=== PATIENT | male | born 1955 | race Caucasian/White ===

== ENCOUNTER 2023-11-13 10:15 | Observation (INO) ==
--- NOTE | 2023-10-29 15:45 | Anesthesiology Consultation ---
Date of Service October 29, 2023 Assessment & Plan (1) Encounter for pre-operative examination: - Per field care manager on 10/29/23: No known infectious disease contacts, current infectious disease symptoms in past 10 days or COVID positive test result in the past 30 days. Chart Review Chart Review: Acceptable Risk for Surgery and Patient NOT seen in Pre Admission Testing History Surgery Operation Date: 11/13/23 07:30 Proposed Procedures p Robotic Assisted Laparoscopic Radical Retropubic Prostatectomy, Possible Open, Possible Pelvic Lymph Node Dissection - Tyler Way MD Height/Weight Height: 5 ft 4 in Weight: 79.832 kg Allergies Allergy/AdvReac Type Severity Reaction Status Date / Time cat dander Allergy Intermediate Itchy Verified 10/29/23 13:57 Eyes/Nasal Congestion pollen extracts Allergy Intermediate Itchy Verified 10/29/23 13:57 Eyes/Nasal Congestion Medications Home Medications Medication Instructions Recorded Confirmed Last Taken cetirizine 10 mg tablet 10 mg PO HS 06/30/20 10/29/23 08/15/20 methocarbamol 750 mg tablet 750 mg PO Q6H PRN Muscle Spasm 06/30/20 10/29/23 08/16/20 07:00 celecoxib 200 mg capsule (Celebrex) 200 mg PO QAM 05/07/23 10/29/23 Unknown triamcinolone acetonide 55 mcg 1 spray intranasal BID 06/16/23 10/29/23 Unknown nasal spray aerosol pregabalin 100 mg capsule 100 mg PO HS 09/09/23 10/29/23 Unknown pregabalin 25 mg capsule 25 mg PO QAM 09/09/23 10/29/23 Unknown azelastine 137 mcg-fluticasone 50 1 spray intranasal BID 10/29/23 10/29/23 Unkno wn mcg/spray nasal spray Past Medical History Medical History Chronic diarrhea "I have a loose gut not chronic diarrhea - depends on what I eat" Diverticular disease "Nothing found on my colonoscopy" Hx of Lyme disease completed antibiotic tx PONV (postoperative nausea and vomiting) "When they used ether" Prostate cancer No chemo/Radiation - will just be surgery Radiculopathy Stomach ulcer hx of Tremor [facility] - r/o Parkinson - "I don't have Parkinsons" Past Family History Family History Father Heart disease Grandfather Diabetes Mother Heart disease Brother No problems noted. Brother No problems noted. Daughter No problems noted. Son No problems noted. Other No family history of adverse response to anesthesia Past Surgical History Surgical History H/O vasectomy History of colonoscopy History of esophagogastroduodenoscopy (EGD) History of lumbar laminectomy History of prostate biopsy (07/18/23) History of removal of cyst off shoulder History of tonsillectomy History of tooth extraction History of wisdom tooth extraction Hx of excision of lamina of cervical vertebra for decompression of spinal cord x2--normal ROM Status post trigger finger release Social History Smoking Status: Never smoker Do You Dip or Chew Tobacco: No Hx Alcohol Use: Yes Alcohol type: beer, wine and hard liquor alcohol intake frequency: a few times a month Hx Substance Use: No substance use type: does not use Lab Results Anesthesia Preop Results Results Anesthesia Widget: WBC 6.07 K/ul (4.8-10.8) 10/01/23 Hgb 15.3 g/dl (14.0-18.0) 10/01/23 Hct 45.3 % (42.0-52.0) 10/01/23 Plt 131 K/uL (130-400) 10/01/23 Na 141 mmol/L (136-145) 10/01/23 K 4.0 mmol/L (3.5-5.1) 10/01/23 Cl 109 mmol/L (98-107) H 10/01/23 CO2 26 mmol/L (21-32) 10/01/23 BUN 16 mg/dl (6-23) 10/01/23 Creat 0.78 mg/dl (0.6-1.4) 10/01/23 Glucose Level 94 mg/dl (70-99(Fasting)) 10/01/23 Testing Electrocardiogram Date: 10/01/23 NSR, rate 73 bpm Chest X-Ray Date: 10/01/23 No acute process. Other Testing PET scan 09/04/23 Primary prostate lesion uptake without definite metastatic disease.
[2023-11-13] MEDS ORDERED: fentaNYL citrate PF 100 MCG/2 ML VIAL ONE ×4 (10:47→16:08)
[2023-11-13] MEDS ORDERED: MIDAZOLAM HCL 1 MG/ML 2ML VIAL ONE (10:47)
[2023-11-13] MEDS: LACTATED RINGER'S 1,000 ML IV SCH (11:12)
[2023-11-13] MEDS: LR 15ML/HR IV SCH (11:12)
[2023-11-13] MEDS: HEPARIN SOD 5,000 UNIT/0.5 ML VIAL SQ SCH ×2 (11:19→21:49)
--- NOTE | 2023-11-13 11:26 | History & Physical Report ---
Date of Service November 13, 2023 Assessment & Plan (1) Prostate cancer: Plan: We reviewed the plan for robot-assisted radical prostatectomy and pelvic lymph node dissection. We discussed risks and benefits of surgery. He expressed understanding and would like to proceed. History of Present Illness Primary Care Provider: Hitesh Toscano MD This is a 68-year-old male followed by urology for prostate cancer. He presents to the OR today for robot-assisted radical prostatectomy and bilateral pelvic lymph node dissection. He denies any changes in his health. Allergies Allergy/AdvReac Type Severity Reaction Status Date / Time cat dander Allergy Intermediate Itchy Verified 11/13/23 10:50 Eyes/Nasal Congestion pollen extracts Allergy Intermediate Itchy Verified 11/13/23 10:50 Eyes/Nasal Congestion Home Medications Medication Instructions Recorded Confirmed Type cetirizine 10 mg tablet 10 mg PO HS 06/30/20 11/13/23 History methocarbamol 750 mg tablet 750 mg PO Q6H PRN Muscle Spasm 06/30/20 11/13/23 History celecoxib 200 mg capsule (Celebrex) 200 mg PO QAM 05/07/23 11/13/23 History triamcinolone acetonide 55 mcg 1 spray intranasal BID 06/16/23 11/13/23 History nasal spray aerosol pregabalin 100 mg capsule 100 mg PO HS 09/09/23 11/13/23 History pregabalin 25 mg capsule 25 mg PO QAM 09/09/23 11/13/23 History azelastine 137 mcg-fluticasone 50 1 spray intranasal BID 10/29/23 11/13/23 History mcg/spray nasal spray oxybutynin chloride 5 mg 5 mg PO DAILY #30 tabs 10/30/23 11/13/23 Rx tablet,extended release 24 hr Past Med/Surg History Problem List Prostate cancer (Chronic 07/18/23) Elevated PSA Tremor Rectal bleeding Encounter for pre-operative examination Bladder spasm Medical History Chronic diarrhea "I have a loose gut not chronic diarrhea - depends on what I eat" Diverticular disease "Nothing found on my colonoscopy" Hx of Lyme disease completed antibiotic tx PONV (postoperative nausea and vomiting) "When they used ether" Prostate cancer No chemo/Radiation - will just be surgery Radiculopathy Stomach ulcer hx of Tremor [facility] - r/o Parkinson - "I don't have Parkinsons" Surgical History H/O vasectomy History of colonoscopy History of esophagogastroduodenoscopy (EGD) History of lumbar laminectomy History of prostate biopsy (07/18/23) History of removal of cyst off shoulder History of tonsillectomy History of tooth extraction History of wisdom tooth extraction Hx of excision of lamina of cervical vertebra for decompression of spinal cord x2--normal ROM Status post trigger finger release Family History Father Heart disease Grandfather Diabetes Mother Heart disease Brother No problems noted. Brother No problems noted. Daughter No problems noted. Son No problems noted. Other No family history of adverse response to anesthesia Social History Smoking Status: Never smoker Tobacco Type: Cigarettes Age Started Using Tobacco: 14; Age Quit Using Tobacco: 40; Second Hand Exposure: No; Do You Dip or Chew Tobacco: No; Tobacco Cessation Education Requested by Patient: No Hx Alcohol Use: Yes Alcohol type: beer, wine and hard liquor Alcohol Intake Frequency: Monthly or Less Hx Substance Use: No Preferred Language: Tamazight Communication Ability: Effective Visual Impairment: Limited Hearing Ability: Normal Soils Engineer Required: No Beliefs That Will Affect Care: None marital status: Current Living Situation: Spouse current occupational status: employed current occupation: meat department manager How many Children do You have: 1 Other Information That Helps Us Care for You: No Feels Safe at Home: Yes Safety Concerns: Feels Safe At This Time Childhood Exposure to Second-Hand Smoke: Yes Diet: regular caffeine: Yes during the past year weight has: remained stable Dental Care, Regularly: Yes Assistive Devices: Glasses Review of Systems 12 point review of systems negative except for otherwise indicated. Physical Exam Constitutional: well developed and well nourished; no acute distress Eyes: + anicteric sclerae; pupils not irregula r Respiratory: normal respiratory effort; no respiratory distress, does not use accessory muscles and no cough Cardiovascular: well perfused Gastrointestinal (Abdomen): Inspection/Auscultation: abdomen normal to inspection; abdomen not distended Musculoskeletal: Extremities: extremities normal to inspection Skin: normal turgor; no rashes and no lesions Neurologic: moves all extremities and awake Psychiatric: Orientation: alert and oriented x 3 Results & Data Vital Signs (Past 12 Hours) Vital Signs Temp Pulse Resp BP Pulse Ox O2 Del Method 11/13/23 10:50 36.6 C 66 18 148/97 H 97 Room Air
[2023-11-13] MEDS ORDERED: ACETAMINOPHEN 1000 MG/100 ML IV IV ONE (11:29)
[2023-11-13] MEDS ORDERED: LIDOCAINE 2% 2 ML VIAL/AMP(20MG/ML) INFIL ONE (11:32)
[2023-11-13] MEDS ORDERED: ROCURONIUM BROMIDE 10 MG/ML 5 ML VIAL IV ONE ×2 (11:32→13:21)
[2023-11-13] MEDS ORDERED: ONDANSETRON INJ 2 MG/ML 2 ML VIAL ONE (11:32)
[2023-11-13] MEDS ORDERED: DEXAMETHASONE SOD INJ 4 MG/ML VIAL ONE (11:32)
[2023-11-13] MEDS ORDERED: PROPOFOL IV EMULSION 10 MG/ML 20 ML VIAL IV ONE (11:32)
[2023-11-13] MEDS ORDERED: ATROPINE SULFATE 0.1 MG/ML 10ML SYR IV PRN (11:33)
[2023-11-13] MEDS ORDERED: ePHEDrine sulfate 50 MG/ML AMP IV PRN (11:33)
[2023-11-13] MEDS ORDERED: fentaNYL citrate PF 100 MCG/2 ML VIAL IV PRN (11:33)
[2023-11-13] MEDS ORDERED: ONDANSETRON INJ 2 MG/ML 2 ML VIAL IV PRN ×2 (11:33→17:45)
[2023-11-13] MEDS: ceFAZolin 2000MG 2,000 MG/15 ML SYR IV SCH ×2 (11:55→20:44)
[2023-11-13] MEDS ORDERED: PHENYLEPHRINE 100MCG/ML 10ML SYR IV ONE (12:23)
[2023-11-13] MEDS ORDERED: ePHEDrine sulfate 50 MG/5 ML SYR ONE (12:23)
[2023-11-13] MEDS: SURGICEL ABSORB HEMOSTAT 2IN X 14IN TOP ONE (15:21)
[2023-11-13] MEDS ORDERED: SUGAMMADEX SODIUM 200 MG/2 ML VIAL IV ONE (15:26)
[2023-11-13] MEDS: BUPIVACAINE 0.5 % 5 MG/1 ML MPF 30ML VIAL ONE (15:58)
--- NOTE | 2023-11-13 16:32 | Operative Report ---
PG Post Operative Report Pre & Post Diagnosis Operation Date: 11/13/23 12:10 Pre-Op Diagnosis: Prostate Cancer Post-Op Diagnosis: Prostate Cancer I identified the patient and participated in the time-out.: Yes Procedure Operation Date: 11/13/23 12:10 Actual Procedures p Robotic Assisted Laparoscopic Radical Retropubic Prostatectomy, Pelvic Lymph Node Dissection(Not Applicable) - Tyler Way MD Surgeon Tyler Way MD Online Tutor STEPHEN Goldsmith Estimated Blood Loss 150 Findings Consistent with Post-Op Diagnosis Specimens 1) periprostatic fat 2) right pelvic lymph nodes 3) left pelvic lymph nodes 4) prostate, vas deferens, seminal vesicles Drains Winston catheter per urethra Anesthesia Type General Complications none Disposition Accompanied Patient To Recovery: Yes Disposition: Recovery Room Indications This is a 68-year-old male followed by urology for prostate cancer. He presents to the OR today for robot-assisted radical prostatectomy Description of Procedure The patient was identified in the preoperative holding area and informed consent was confirmed. He was then brought to the operating room where general anesthesia was initiated. He was placed supine on the operating room table with all pressure points appropriately padded. His abdomen and genitalia were prepped and draped in the usual sterile fashion and a timeout was performed. A 2 cm incision was made above the umbilicus and then a Veress needle was used to obtain access to the abdomen. Proper position was confirmed with the drop test and low initial insufflation pressure. The abdomen was insufflated with CO2 to a pressure of 15 mmHg. An 8 mm robotic port was placed in the incision and the robotic camera was inserted. The abdominal cavity was surveyed, demonstrating no injury to intra-abdominal contents. He had some adhesions of the sigmoid and descending colon. The remaining robotic ports were placed under direct visualization, with 2 robotic ports on the left side and 1 robotic port on the right. A 12 mm assistant superintendent port was placed on the right side as well, and a 5 mm assistant superintendent port was placed in the right upper quadrant. The robot was then docked. I sharply divided the adhesions so that the rectum could be reflected out of the pelvic vault. Using electrocautery, the bladder was then dropped from the anterior wall of the abdomen, exposing the space of Retzius. This dissection was carried down to expose the pelvic brim and subsequently the anterior surface of the prostate and the endopelvic fascia. The fat overlying the anterior of the prostate was removed and sent for pathologic analysis, labeled as 'periprostatic fat'. The endopelvic fascia was then divided on each side to expose the lateral aspects of the prostate and the lateral aspects of the pedicles. A single 3-0 V-Loc suture was used to ligate the dorsal venous complex to prevent backbleeding in subsequent steps. The fourth arm of the robot was then used to put some gentle traction on the bladder, and the bladder neck was identified. Using electrocautery, the anterior bladder neck was dissected to expose the Winston catheter, whose tip was removed from the bladder and held anteriorly. The posterior bladder neck dissection was then completed. At this point bilateral vas deferens were exposed and isolated. The vas deferens were cauterized and then divided. Bilateral seminal vesicles were dissected out as well. The left seminal vesicle was somewhat fused posteriorly. Denonvilliers fascia was then divided and the posterior prostate dissection was carried up as far as possible toward the urethra. Overall, the posterior plane of the prostate was somewhat "sticky". The pedicles were then divided using combination of clips and sharp dissection, trying to use minimal electrocautery. On the right side, a partial nerve sparing approach was used. On the left side, a non-nerve sparing approach was used. Attention was turned anteriorly and the dorsal venous complex was divided using sharp dissection and electrocautery. The urethra was isolated and then divided sharply. At this point, the prostate was free and was placed in a specimen bag. Bilateral pelvic lymph node dissection was then performed, and the meredith tissue was sent for pathologic analysis. The pelvis was inspected and meticulous hemostasis was ensured. A single piece of Surgicel was placed on the pelvic floor. Double-armed V-Loc suture was then used to re-anastomose the bladder neck with the urethra. Once this was com plete, the anastomosis was tested by instilling 120 mL of normal saline into the bladder. Satisfied that the anastomosis was watertight, the catheter balloon was inflated with 10 mL of normal saline. Surgicel was then applied to the lateral aspects of the pelvis for hemostasis. The robot was then undocked. The supraumbilical incision was extended and the prostate was extracted. 0 Vicryl suture was then used to close the fascia at this incision. All skin incisions were closed with 4-0 Monocryl suture and then a layer of Dermabond was applied. The patient was then awakened from anesthesia and was brought to the PACU in stable condition. STEPHEN Goldsmith acted as the bedside assistant superintendent for the duration of the case. She assisted with gaining access, providing retraction and suction. Passing in sutures and applying clips as needed. She also helped with specimen extraction and closing. I attest to the content of the Intraoperative Record and any orders documented therein. Any exceptions are noted below.
--- NOTE | 2023-11-13 16:45 | Anesthesiology Progress Note ---
Date of Service November 13, 2023 Anesthesia Post Procedure Vital Signs Vital Signs: Temp Pulse Pulse Resp BP Pulse Ox O2 Del Method 11/13/23 16:30 78 22 145/91 H 100 Oxymask 11/13/23 16:20 36.2 C L 79 10 L 135/81 93 Oxymask 11/13/23 10:50 36.6 C 66 18 148/97 H 97 Room Air O2 Flow Rate 11/13/23 16:30 10 11/13/23 16:20 10 11/13/23 10:50 Transfer of Care Handoff Completed per policy Notes Mental Status: alert / awake / arousable Patient Amnestic to Procedure: Yes Nausea / Vomiting: adequately controlled Pain: adequately controlled Airway Patency, RR, SpO2: stable & adequate BP & HR: stable & adequate Hydration State: stable & adequate Anesthetic Complications: no major complications apparent
[2023-11-13] MEDS ORDERED: oxyCODONE HCL IR 5 MG TAB (IMMEDIATE RELEASE) PO PRN ×2 (17:45)
[2023-11-13] MEDS ORDERED: HYDROmorphone INJ 0.5 MG/0.5 ML SYR IV PRN ×2 (17:45)
[2023-11-13] MEDS: SODIUM CHLORIDE 0.9% 1,000 ML IV SCH (17:58)
[2023-11-13] MEDS: ACETAMINOPHEN 325 MG TAB PO SCH (18:08)
[2023-11-13] MEDS: CETIRIZINE HCL 10 MG TABLET PO SCH (21:48)
[2023-11-13] MEDS: METHOCARBAMOL 750 MG TABLET PO PRN (21:49)
[2023-11-13] MEDS: DOCUSATE SODIUM 100 MG CAP PO SCH (21:49)
[2023-11-13] MEDS: PREGABALIN 100 MG CAP PO SCH (21:49)
[2023-11-13] MEDS: AZELASTINE HCL 0.1% NASAL 200 SPRAYS/27,400 MCG BTL SCH (21:49)
[2023-11-14 06:27] LABS: Basophils # (auto) 0.02 K/uL (0.00-0.20); Basophils % (auto) 0.2 %; Eosinophils # (auto) 0.01 K/uL (0.00-0.50); Eosinophils % (auto) 0.1 %; Hematocrit (blood only) 40.8 % (42.0-52.0); Immature Granulocytes # (auto) 0.03 K/uL (0.01-0.20); Immature Granulocytes % (auto) 0.3 %; Lymphocytes # (auto) 2.49 K/uL (1.20-3.40); Lymphocytes % (auto) 22.6 %; Mean Corpuscular Hemoglobin 29.5 pg (25.0-34.0); Mean Corpuscular Hgb Conc 34.3 g/dL (32.0-36.0); Mean Corpuscular Volume 86.1 fL (80.0-100.0); Mean Platelet Volume 11.4 fL (9.4-12.4); Monocytes # (auto) 1.26 K/uL (0.11-0.59); Monocytes % (auto) 11.5 %; Neutrophils # (auto) 7.19 K/uL (1.40-6.50); Neutrophils % (auto) 65.3 %; Platelet Count 181 K/uL (130-400); RDW Coefficient of Variation 11.8 % (11.5-14.5); RDW Standard Deviation 36.9 fL (36.4-46.3); Red Blood Count 4.74 M/uL (4.70-6.10)
[2023-11-14 06:51] LABS: BUN Creatinine Ratio 14.7 (10-20); Calcium 8.6 mg/dl (8.6-10.3); Creatinine Clr Calc Pharmacy 88.8 ml/min; Est GFR (African American) 109.2 ml/min; Est GFR (Non-African American) 94.3 ml/min; Potassium 4.1 mmol/L (3.5-5.1)
[2023-11-14 07:25] VITALS: BP 142/97; PULSE 89; RESP 16; TEMP 97.9; O2SAT 96
--- NOTE | 2023-11-14 07:25 | Urology Progress Note ---
Date of Service November 14, 2023 Assessment & Plan (1) Prostate cancer: Plan: Overall he is recovering appropriately s/p radical prostatectomy on 11/13/2023. He is tolerating a diet, ambulating and pain is well-controlled. He is appropriate for discharge today. Admission and Anticipated Discharge Date Admission Date: November 13, 2023 Subjective Feeling well, slightly distended with minimal incisional tenderness Tolerating a diet with no nausea or vomiting Has been ambulating in the hallways Has had some bleeding around the catheter, especially with Valsalva. Physical Exam Physical Exam: Well-appearing, NAD Winston catheter in place draining clear red urine, Abdomen soft, appropriately tender to palpation, incisions well reapproximated with Dermabond. Results & Data Vital Signs (Past 12 Hours) Vital Signs Temp Pulse Resp BP Pulse Ox O2 Del Method 11/14/23 03:01 37.1 C 83 18 132/79 94 Room Air 11/13/23 22:48 36.9 C 93 H 16 147/91 H 96 Room Air 11/13/23 20:50 36.5 C 89 18 158/95 H 98 Room Air 11/13/23 19:48 36.6 C 89 16 158/91 H 98 Room Air PG Care Time/CCT Total # of Minutes Spent Total Time Spent with Patient: Total time spent is greater than 50% in coordination of care (as documented) at patient's floor/unit and/or counseling patient: Coding Level of Care Code None Diagnoses Prostate cancer C61
--- NOTE | 2023-11-14 07:28 | Discharge Summary ---
Date of Service November 14, 2023 Admission HPI Per Admitting Provider This is a 68-year-old male followed by urology for prostate cancer. He presents to the OR today for robot-assisted radical prostatectomy and bilateral pelvic lymph node dissection. He denies any changes in his health. Admission Exam Per Admitting Provider Constitutional well developed and well nourished; no acute distress Eyes + anicteric sclerae; pupils not irregular Respiratory normal respiratory effort; no respiratory distress, does not use accessory muscles and no cough Cardiovascular well perfused Gastrointestinal (Abdomen) Inspection/Auscultation: abdomen normal to inspection; abdomen not distended Musculoskeletal Extremities: extremities normal to inspection Skin normal turgor; no rashes and no lesions Neurologic moves all extremities and awake Psychiatric Orientation: alert and oriented x 3 Principal Diagnosis Prostate cancer Discharge Exam Well-appearing, NAD Gonzalez catheter in place draining clear red urine, Abdomen soft, appropriately tender to palpation, incisions well reapproximated with Dermabond. Discharge Data Allergies Allergy/AdvReac Type Severity Reaction Status Date / Time cat dander Allergy Intermediate Itchy Verified 11/13/23 10:50 Eyes/Nasal Congestion pollen extracts Allergy Intermediate Itchy Verified 11/13/23 10:50 Eyes/Nasal Congestion Procedures Performed Operation Date: 11/13/23 12:10 Actual Procedures p Robotic Assisted Laparoscopic Radical Retropubic Prostatectomy, Pelvic Lymph Node Dissection(Not Applicable) - Tyler Way MD Hospital Course (1) Prostate cancer: He underwent robot-assisted radical prostatectomy on 11/13/2023. By 11/14/2023, he was tolerating a diet, ambulating and pain was well-controlled. He was discharged home in good condition. Total Time Total Time Spent Total Time Spent (In Minutes): 15 Discharge Plan Discharge Items Patient Disposition: Home - Self-Care Reason For Visit: Prostate Cancer Discharge Diagnosis: Prostate cancer Activity: Per Instructions section Non-emergency contact: Urologist Call non-emergency contact if: your pain is not controlled, your pain is unusual for you, you have a fever, your temperature is above 101, your wound has increased redness, your wound has increased drainage and your wound pain has increased Follow-up/Referrals: Hitesh Toscano MD [Primary Care Provider] - Diet: Regular Addtl Attending Provider Instructions: The surgery you had was: Robot-assisted radical prostatectomy with bilateral pelvic lymph node dissection. Please take all medications as prescribed and keep all follow-ups as scheduled. Please call our office at [phone] with any questions, concerns or need to reschedule appointments for any reason. We are happy to assist you Medications: Please take all medications as prescribed. For pain control, you can take tylenol every 6 hours. You can also take ibuprofen every 6 hours. If you have been prescribed a narcotic pain medication, please take this according to the instructions on the label. You have been prescribed a single dose of antibiotics (Bactrim) to be taken 1 hour prior to your appointment for gonzalez catheter removal. Activity: We recommend having someone with you for the first few days after surgery to help care for you. For the first 2 weeks after surgery, we would like you to get up and walk around your house. However, we recommend limit physical activity that would increase your heart rate. This will allow your body to rest and heal. Take naps if you feel tired. Don't lift anything heavier than 10 pounds, mow the law or ride a bicycle until your follow-up appointment. Please avoid long car rides. Home Care: Unless directed otherwise, drink 6 to 8 glasses of water a day (enough to keep your urine light colored). This will also help keep a healthy flow of urine. We recommend using a stool softener such as colace or miralax for the first two weeks to avoid constipation. Gonzalez Catheter or Suprapubic Catheter care: Keep the catheter well secured with either a leg back or leg strap with large bag. Empty your bag when it's about half full. You may notice some blood in the bag. This is normal after surgery and while the catheter is in place. Use mild soap (such as Dove or Dial) and water to wash the catheter and the head of your penis daily, or more frequently if needed. Return to your normal diet, we encourage good protein intake to promote healing. You may shower as normal. Please avoid tub baths or soaking until catheter removed and incisions well healed. Wearing sweat pants while you have the catheter is recommended, they will be more comfortable. Follow-up We will have you come to the office in approximately 7 days for catheter removal. - Please remember to take your dose of antibiotics 1 hour prior to this appointment. We will go over pathology and schedule additional follow-up at this visit. Call [facility] [place] [facility] at [phone] right away if you have any of the following: Chest pain or trouble breathing (call 911 or go to the hospital) Fever of 101F or higher, uncontrolled vomiting Heavy bleeding, clots, or bright red blood from the catheter Catheter that falls out or stops draining Foul-smelling discharge from your catheter Redness, swelling, warmth, or increased pain at your incision site Drainage, pus, or bleeding from your incision Pending Studies at Discharge: No Stand-Alone Forms: My [facility] Medications and DC Order Prescriptions: New sulfamethoxazole-trimethoprim [Bactrim DS] 800-160 mg tablet 1 tab PO ONCE 1 Days Qty: 1 0RF Rx Instructions: Take 1 hour prior to catheter removal Continued pregabalin 100 mg capsule 100 mg PO HS oxybutynin chloride 5 mg tablet extended release 24hr 5 mg PO DAILY Qty: 30 2RF celecoxib [Celebrex] 200 mg capsule 200 mg PO QAM pregabalin 25 mg capsule 25 mg PO QAM Rx Instructions: AM and 1200 methocarbamol 750 mg tablet 750 mg PO Q6H PRN (Reason: Muscle Spasm) cetirizine 10 mg tablet 10 mg PO HS triamcinolone acetonide 55 mcg aerosol,spray 1 spray intranasal BID Rx Instructions: administer into each nostril azelastine-fluticasone 137-50 mcg/spray [place],Non-Aerosol 1 spray INTRANASAL BID Rx Instructions: administer into each nostril Discharge Orders: Discharge Order (Routine); Ordered 11/14/23 Ordered By: Tyler Way Admission Data Admit Date/Time: 11/13/23 16:21 Attending Provider: Tyler Way Admit Provider: Tyler Way Primary Care Provider: Hitesh Toscano Coding Level of Care Code INP/OBS EV SAME DAY LV 1,45MIN Diagnoses Prostate cancer C61
[2023-11-14] MEDS: FLUTICASONE PROPIONATE NA SPR 16 GM BTL SCH (08:27)
[2023-11-14] MEDS: PREGABALIN 25 MG CAP PO SCH (08:29)
== END 2023-11-14 11:04 | disposition home or self-care (01) ==
LOC: ASU 10:15 → INTOOBSV 16:21 → 3E 16:21